=== PATIENT | male | born 1985 | race Caucasian/White ===

== ENCOUNTER 2016-11-27 16:06 | Emergency (ER) | payer OTHER, BC ==
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
== END 2016-11-27 17:53 | disposition home or self-care (01) ==
LOC: ER 16:06
DX: S93.601A Unspecified sprain of right foot, initial encounter (principal); S00.83XA Contusion of other part of head, initial encounter; V49.40XA Driver injured in collision with unspecified motor vehicles in traffic accident, initial encounter